=== PATIENT | male | born 1955 | race African-American/Black ===

== ENCOUNTER 2017-03-24 21:32 | Emergency (ER) | payer OTHER ==
[~2017-03-24] VITALS: Ht 175.3 cm; Wt 96.6 kg
[2017-03-24] MEDS ORDERED: NORCO 5-325 TA1 EAC1 ORAL (21:40)
[2017-03-24] MEDS ORDERED: Morphine Sulfate 4mg/ml Inj IVP ONE (21:45)
[2017-03-24 22:45] LABS: BASOPHILS % (AUTO) 0.7 % (0.0-2.0); EOSINOPHILS % (AUTO) 1.8 % (0.0-3.0); LYMPHOCYTES % (AUTO) 23.1 % (20.0-45.0); MEAN CORPUSCULAR HEMOGLOBIN 28.5 PG (27.0-31.0); MEAN CORPUSCULAR VOLUME 86 FL (80-99); MEAN PLATELET VOLUME 9.2 FL (6.5-10.1); MONOCYTES % (AUTO) 9.9 % (1.0-10.0); NEUTROPHILS % (AUTO) 64.6 % (45.0-75.0); PLATELET COUNT 200 K/UL (150-450); RED BLOOD COUNT 3.34 M/UL (4.70-6.10); RED CELL DISTRIBUTION WIDTH 11.8 % (11.6-14.8); WHITE BLOOD COUNT 11.7 K/UL (4.8-10.8)
[2017-03-24] MEDS ORDERED: Etomidate 40mg/20ml Inj IV ONE ×2 (22:46→23:00)
[2017-03-24 23:00] LABS: ALANINE AMINOTRANSFERASE 28 U/L (3-41); ALBUMIN/GLOBULIN RATIO 1.4 (1.0-2.7); ASPARTATE AMINO TRANSFERASE 54 U/L (5-40); CALCIUM 8.9 mg/dL (8.6-10.2); CARBON DIOXIDE 31 mEQ/L (20-30); CHLORIDE 91 mEQ/L (98-107); GLOMERULAR FILTRATION RATE > 60 mL/min (>60); HEMOLYSIS 1; SODIUM 137 mEQ/L (135-145); TOTAL PROTEIN 6.3 g/dL (6.6-8.7)
[2017-03-24 23:01] LABS: INR 1.1 (0.9-1.1)
[2017-03-24 23:05] LABS: ANION GAP 15 (5-15); POTASSIUM 2.8 mEQ/L (3.4-4.9)
[2017-03-25] VITALS: BP 129/62
[2017-03-25] MEDS ORDERED: Morphine Sulfate 4mg/ml Inj IVP ONE ×2 (00:30→03:45)
[2017-03-25 01:20] VITALS: BP 129/79
[2017-03-25 03:34] VITALS: BP 132/72
--- NOTE | 2017-03-25 03:42 | Emergency Room Report ---
History of Present Illness General Chief Complaint: Lower Extremity Injury Source: Patient, EMS Present Illness HPI 61-year-old male presents ED with left hip pain. Per EMS patient bent over today to tie his shoes at home and felt a pop in his left hip. Believes it is dislocated. Patient states he just had hip surgery 3 days ago at [facility]. Total hip replacement on the left. Patient was given pain medications by EMS. States pain is currently an 8/10, throbbing, nonradiating. Unable to bear weight. Denies any other injuries. No other aggravating or relieving factors. Denies any other associated symptoms Allergies: Coded Allergies: DIPHENHYDRAMINE (Verified Allergy, Mild, 03/24/17) Patient History Past Medical History: none Past Surgical History: other - L hip JOSE DANIEL Pertinent Family History: none Social History: Denies: alcohol use, drug use, smoking Immunizations: UTD Reviewed Nursing Documentation: PMH: Agreed, PSxH: Agreed Nursing Documentation-PMH Past Medical History: No History, Except For Hx Hypertension: Yes - no meds Review of Systems All Other Systems: negative except mentioned in HPI Physical Exam Vital Signs Date Time Temp Pulse Resp B/P Pulse Ox O2 Delivery O2 Flow Rate FiO2 03/24/17 21:33 91 20 140/80 97 Room Air 03/25/17 01:20 98.2 2.0 Sp02 EP Interpretation: reviewed, normal General Appearance: alert, GCS 15, non-toxic, mild distress Head: normocephalic Eyes: bilateral eye PERRL, bilateral eye normal inspection ENT: normal ENT inspection Neck: normal inspection Respiratory: normal inspection Cardiovascular #1: normal inspection Gastrointestinal: normal inspection Rectal: deferred Genitourinary: no CVA tenderness Musculoskeletal: tender - L hip. jessica noted to lateral aspect L hip. shortening with internal rotation Neurologic: alert, oriented x3, responsive, motor strength/tone normal, sensory intact, speech normal Psychiatric: normal inspection Skin: normal inspection Lymphatic: normal inspection Procedures Joint Reduction Joint Reduction : Consent: Written Joint Reduction Site: hip (L) Procedural Sedation: Yes Reduction Attempts: Other - twice Pre-Procedure NV Exam: Yes Post-Procedure NV Exam: Yes Post Joint Reduction Film: joint not reduced Patient Tolerated: Well Complications: None Procedural Sedation Consent: Written Pre-Sedation Assessment: Eval. Immed. Prior to Sed, Pre-proc Edu. done, Plan for Sedation Discuss Airway Assessment (Malampati): I Heart: normal Lungs: normal Abdomen: normal Extremities: normal Procedures/Plans: Closed Reduction Plan for Moderate Sedation: Other - etomidate ASA Score: I Start Time: 01:41 End Time: 02:34 Total Time: 52 Communication: No Apparent Limitation Mental Status: Awake Respiration: Unlabored Skin Condition: WNL Abdomen: WNL Nausea: NO Vomiting: NO Medical Decision Making Diagnostic Impression: Primary Impression: Dislocation of hip prosthesis Qualified Codes: T84.029A - Dislocation of unspecified internal joint prosthesis, initial encounter; Z96.649 - Presence of unspecified artificial hip joint Additional Impression: Hypokalemia ER Course Hospital Course 61-year-old male presents ED with left hip pain and shortening. Status post bending over.. Status post left hip prosthesis x3 days Differential diagnoses include: fracture, dislocation, contusion Clinical course Patient placed on stretcher. After initial history and physical I ordered labs , pain medication and x-rays of L hip and L femur X-ray show posterior hip dislocation with prosthesis Labs reviewed-no leukocytosis noted, K 2.8, hemoglobin/hematocrit okay Patient was adequately sedated with etomidate. I made multiple attempts to reduce the hip but was unsuccessful Potassium repleted X-rays reviewed with Dr. Berman (Orthopedics); believes that the acetabulum component is not positioned properly; likely needs revision Discussed case with [facility] where patient had surgery. they agreed to transfer i. I feel this is a highly complex case requiring extensive working including EKG/Rhythm strip, Xray/CT/US, Blood/urine lab work, repeat exams while in ED, and administration of strong opiates/narcotics for pain control, admission to hospital or close patient follow up. Diagnosis - dislocation of hip prosthesis, hypokalemia Transferred in serious condition Labs Test 03/24/17 22:23 White Blood Count 11.7 K/UL (4.8-10.8) Red Blood Count 3.34 M/UL (4.70-6.10) Hemoglobin 9.5 G/DL (14.2-18.0) Hematocrit 28.8 % (42.0-52.0) Mean Corpuscular Volume 86 FL (80-99) Mean Corpuscular Hemoglobin 28.5 PG (27.0-31.0) Mean Corpuscular Hemoglobin Concent 33.0 G/DL (32.0-36.0) Red Cell Distribution Width 11.8 % (11.6-14.8) Platelet Count 200 K/UL (150-450) Mean Platelet Volume 9.2 FL (6.5-10.1) Neutrophils (%) (Auto) 64.6 % (45.0-75.0) Lymphocytes (%) (Auto) 23.1 % (20.0-45.0) Monocytes (%) (Auto) 9.9 % (1.0-10.0) Eosinophils (%) (Auto) 1.8 % (0.0-3.0) Basophils (%) (Auto) 0.7 % (0.0-2.0) Prothrombin Time 11.0 SEC (9.30-11.50) Prothromb Time International Ratio 1.1 (0.9-1.1) Activated Partial Thromboplast Time 31 SEC (23-33) Sodium Level 137 mEQ/L (135-145) Potassium Level 2.8 mEQ/L (3.4-4.9) Chloride Level 91 mEQ/L (98-107) Carbon Dioxide Level 31 mEQ/L (20-30) Anion Gap 15 (5-15) Blood Urea Nitrogen 12 mg/dL (7-23) Creatinine 1.0 mg/dL (0.7-1.2) Estimat Glomerular Filtration Rate > 60 mL/min (>60) Glucose Level 131 mg/dL (74-106) Calcium Level 8.9 mg/dL (8.6-10.2) Total Bilirubin 0.7 mg/dL (0.0-1.2) Aspartate Amino Transf (AST/SGOT) 54 U/L (5-40) Alanine Aminotransferase (ALT/SGPT) 28 U/L (3-41) Alkaline Phosphatase 68 U/L (40-129) Total Protein 6.3 g/dL (6.6-8.7) Albumin 3.7 g/dL (3.5-5.2) Globulin 2.6 g/dL Albumin/Globulin Ratio 1.4 (1.0-2.7) Other X-Ray Diagnostic Results X-Ray ordered: L hip, L femur # of Views/Limited Vs Complete: 2 View, 3 View EP Interpretation: Yes Interpretation: no fractures, no soft tissue swelling, other - posterior hip dislocation Indication: Pain Impression: Other - posterior hip dislocation Interpreting ER Provider: Boogie Poon MD Last Vital Signs Date Time Temp Pulse Resp B/P Pulse Ox O2 Delivery O2 Flow Rate FiO2 03/25/17 01:20 98.2 80 18 100 Nasal Cannula 2.0 72 100 74 100 69 100 71 03/24/17 21:33 140/80 Status: improved Disposition: ER [facility] Condition: Serious Referrals: Tatiana ELIAS,REFERRING (PCP) BOOGIE POON M.D. Mar 25, 2017 03:42
[2017-03-25 03:57] VITALS: BP 132/72
--- NOTE | 2017-03-27 08:52 | Diagnostic Imaging Report ---
Indications: Fall, left hip and thigh pain Technique: 2 views left hip, 2 views left thigh Findings: Comparison: None Femoral component of left hip prosthesis demonstrates complete cephalad and posterior dislocation relative to the acetabular component. No fracture. Overlying soft tissues are swollen with skin jessica. Knee joint intact. IMPRESSION: Dislocation of recently placed left hip prosthesis No other evidence of acute injury
== END 2017-03-25 04:00 | disposition short-term general hospital (02) ==
LOC: EDBD 21:32 → EMR 22:45
DX: T84.021A Dislocation of internal left hip prosthesis, initial encounter (principal); E87.6 Hypokalemia; Z88.8 Allergy status to other drugs, medicaments and biological substances
CPT/HCPCS: 27266; 36415; 73502; 73552; 80053; 85025; 85610; 85730; 96374; 96375; 99285; J2270; J8499

== ENCOUNTER 2018-12-18 13:25 | Inpatient (IN) | payer OTHER ==
[~2018-12-18] VITALS: Ht 175.3 cm; Wt 99.6 kg
[~2018-12-18 13:25] MED LIST: NORCO 5-325 TA1 EAC1 ORAL
--- NOTE | 2018-12-18 14:23 | Emergency Room Report ---
History of Present Illness General Chief Complaint: Chest Pain Source: Patient Present Illness HPI 63-year-old male with pmhx of HTN, smoking p/w chest pain for 2 days. Chest pain started while at rest. Localized to substernal area, radiates to left shoulder, no radiation to back or other areas, sharp in nature, gradual in onset , multiple episodes. +SOB. Denies palpitations, diaphoresis, n/v. This is the first occurrence of chest pain. Denies fever, chills, cough, abd pain. Denies trauma. Patient has never had a stress test. Patient has never had a cardiac catheterization. Allergies: Coded Allergies: DIPHENHYDRAMINE (Verified Allergy, Mild, 03/24/17) Patient History Past Medical History: see triage record Past Surgical History: none Pertinent Family History: none Reviewed Nursing Documentation: PMH: Agreed; PSxH: Agreed Nursing Documentation-PMH Past Medical History: No History, Except For Hx Hypertension: Yes - no meds Review of Systems All Other Systems: negative except mentioned in HPI Physical Exam Vital Signs Date Time Temp Pulse Resp B/P (MAP) Pulse Ox O2 Delivery O2 Flow Rate FiO2 12/18/18 13:36 98.4 68 20 207/101 96 Room Air Sp02 EP Interpretation: reviewed, normal General Appearance: alert, GCS 15, non-toxic, mild distress Head: normocephalic, atraumatic Eyes: bilateral eye normal inspection, bilateral eye PERRL, bilateral eye EOMI ENT: normal ENT inspection, normal pharynx, normal voice, moist mucus membranes Neck: normal inspection, full range of motion, supple Respiratory: normal inspection, lungs clear, normal breath sounds, no respiratory distress, no retraction, no wheezing, speaking full sentences, chest symmetrical Cardiovascular #1: normal inspection, regular rate, rhythm, no edema, normal capillary refill Cardiovascular #2: 2+ radial (R), 2+ radial (L) Gastrointestinal: normal inspection, non tender, soft, non-distended, no guarding Genitourinary: no CVA tenderness Musculoskeletal: normal inspection, back normal, normal range of motion, non- tender Neurologic: normal inspection, alert, oriented x3, responsive, motor strength/ tone normal, sensory intact, normal gait, speech normal Psychiatric: normal inspection, judgement/insight normal, memory normal Skin: normal inspection, normal color, no rash, warm/dry, well hydrated, normal turgor Medical Decision Making Diagnostic Impression: Primary Impression: ACS (acute coronary syndrome) ER Course 63-year-old male p/w CP DDX: ACS vs. CHF vs. pneumonia vs. gastritis/GERD vs. pneumothorax PE on differential however at this time there are other more likely diagnoses. Plan: IV access, obtain labs including troponin, EKG, CXR ASA, pain control with nitro / morphine Anticipate admission ER course: Patient was treated with ASA. Patient has remained on a monitor, HD stable continues to have CP / L shoudler pain not necessarily back pain LUE venoux duplex is neg for DVT Disposition: Patient requires admission for chest pain. Due to patient's history and comorbidities, patient has increased risk of acute cardiac event. Patient requires admission for further workup, serial troponin, and possible stress test/cath inpatient. D/W hospitalist Dr Alfredo Please note that this Emergency Department Report was dictated using [employer] engineer technology software, occasionally this can lead to erroneous entry secondary to interpretation by the dictation equipment. EKG Diagnostic Results EP Interpretation: Yes Rate: normal Rhythm: NSR ST Segments: T-wave inversions leads II, III, and aVF, as well as V4 V5 and V6 ASA given to patient: Yes Rhythm Strip EP Interpretation: Yes Rate: 70 Rhythm: NSR, no PVCs, no ectopy Chest X-ray CXR: Ordered: Yes 1 view Indication: Chest pain EP interpretation: Yes Interpretation: No consolidation, no effusion, no PTX, no acute cardiopulmonary disease Impression: No acute disease Electronically signed by Collin Mackay MD Xray: Left shoulder Complete Indication: Pain EP Interpretation: Yes Interpretation: No dislocation, no soft tissue swelling, no fractures Impression: No acute disease Electronically signed by Collin Mackay MD Laboratory Tests Test 12/18/18 14:19 White Blood Count 9.5 K/UL (4.8-10.8) Red Blood Count 5.36 M/UL (4.70-6.10) Hemoglobin 14.0 G/DL (14.2-18.0) L Hematocrit 44.5 % (42.0-52.0) Mean Corpuscular Volume 83 FL (80-99) Mean Corpuscular Hemoglobin 26.0 PG (27.0-31.0) L Mean Corpuscular Hemoglobin Concent 31.3 G/DL (32.0-36.0) L Red Cell Distribution Width 12.7 % (11.6-14.8) Platelet Count 161 K/UL (150-450) Mean Platelet Volume 10.5 FL (6.5-10.1) H Neutrophils (%) (Auto) 64.1 % (45.0-75.0) Lymphocytes (%) (Auto) 25.4 % (20.0-45.0) Monocytes (%) (Auto) 6.7 % (1.0-10.0) Eosinophils (%) (Auto) 2.2 % (0.0-3.0) Basophils (%) (Auto) 1.6 % (0.0-2.0) Sodium Level 141 MMOL/L (136-145) Potassium Level 3.5 MMOL/L (3.5-5.1) Chloride Level 105 MMOL/L (98-107) Carbon Dioxide Level 29 MMOL/L (21-32) Anion Gap 7 mmol/L (5-15) Blood Urea Nitrogen 8 mg/dL (7-18) Creatinine 1.0 MG/DL (0.55-1.30) Estimate Glomerular Filtration Rate > 60 mL/min (>60) Glucose Level 102 MG/DL (74-106) Calcium Level 9.1 MG/DL (8.5-10.1) Total Bilirubin 0.8 MG/DL (0.2-1.0) Aspartate Amino Transferase (AST) 23 U/L (15-37) Alanine Aminotransferase (ALT) 27 U/L (12-78) Alkaline Phosphatase 105 U/L (46-116) Total Creatine Kinase 194 U/L (26-308) Creatine Kinase MB 2.0 NG/ML (0.0-3.6) Creatine Kinase MB Relative Index 1.0 Troponin I 0.041 ng/mL (0.000-0.056) Pro-B-Type Natriuretic Peptide 239 pg/mL (0-125) H Total Protein 7.2 G/DL (6.4-8.2) Albumin 3.7 G/DL (3.4-5.0) Globulin 3.5 g/dL Albumin/Globulin Ratio 1.1 (1.0-2.7) Last Vital Signs Date Time Temp Pulse Resp B/P (MAP) Pulse Ox O2 Delivery O2 Flow Rate FiO2 12/18/18 13:36 98.4 68 20 207/101 96 Room Air Disposition: ADMITTED INPATIENT Condition: Serious Collin Mackay M.D. Dec 18, 2018 14:23
--- NOTE | 2018-12-18 14:29 | NUR ---
ED Nurse Note: PT WALKED IN TO ER TODAY FROM HOME. AOX4. PT C/O LEFT SIDED CHEST PAIN, 10/10 X AROUND 0100 THIS MORNING. PT ALSO C/O TINGLING SENSATION DOWN LEFT ARM. CIRCULATION AND SENSATION INTACT. STEADY GAIT. BP AT [facility] 197/88, DR SILVA AWARE. PT DENIES HEADACHE OR DIZZINESS.
[2018-12-18 14:30] VITALS: BP 197/88
[2018-12-18] MEDS ORDERED: Nitroglycerin Subl 0.4mg tab SL PRN (14:30)
[2018-12-18 14:57] LABS: BASOPHILS % (AUTO) 1.6 % (0.0-2.0); EOSINOPHILS % (AUTO) 2.2 % (0.0-3.0); HEMATOCRIT 44.5 % (42.0-52.0); LYMPHOCYTES % (AUTO) 25.4 % (20.0-45.0); MEAN CORPUSCULAR VOLUME 83 FL (80-99); MONOCYTES % (AUTO) 6.7 % (1.0-10.0); NEUTROPHILS % (AUTO) 64.1 % (45.0-75.0); PLATELET COUNT 161 K/UL (150-450); RED BLOOD COUNT 5.36 M/UL (4.70-6.10); RED CELL DISTRIBUTION WIDTH 12.7 % (11.6-14.8); WHITE BLOOD COUNT 9.5 K/UL (4.8-10.8)
[2018-12-18 15:08] LABS: ANION GAP 7 mmol/L (5-15); BLOOD UREA NITROGEN 8 mg/dL (7-18); CALCIUM 9.1 MG/DL (8.5-10.1); CARBON DIOXIDE 29 MMOL/L (21-32); CHLORIDE 105 MMOL/L (98-107); POTASSIUM 3.5 MMOL/L (3.5-5.1); SODIUM 141 MMOL/L (136-145)
--- NOTE | 2018-12-18 15:11 | NUR ---
ED Nurse Note: REPORT GIVEN TO ROB WHITTINGTON.
--- NOTE | 2018-12-18 15:13 | Diagnostic Imaging Report ---
Indication: Dyspnea Comparison: None A single view chest radiograph was obtained. Findings: Cardiomediastinal appearance is within normal limits for age. The lungs are clear. Pulmonary vascularity is appropriate. The diaphragmatic contour is smooth and costophrenic angles are sharp. No pleural effusions are identified. The bones are unremarkable. Impression: No acute findings
[2018-12-18 15:23] LABS: ALANINE AMINOTRANSFERASE 27 U/L (12-78); ALBUMIN 3.7 G/DL (3.4-5.0); ALBUMIN/GLOBULIN RATIO 1.1 (1.0-2.7); ALKALINE PHOSPHATASE 105 U/L (46-116); ASPARTATE AMINO TRANSFERASE 23 U/L (15-37); BILIRUBIN,TOTAL 0.8 MG/DL (0.2-1.0); CREATINE KINASE 194 U/L (26-308)
[2018-12-18 15:30] VITALS: BP 177/81
--- NOTE | 2018-12-18 15:40 | NUR ---
ED Nurse Note: pt c/o shoulder and headache, ERMD notified.
[2018-12-18] MEDS ORDERED: Morphine Sulfate 4mg/ml Inj (IV USE ONLY) IVP ONE ×2 (16:00→17:30)
[2018-12-18 16:30] VITALS: BP 169/77
[2018-12-18] MEDS ORDERED: AMLODIPINE BESY10 MG ORAL (16:34)
[2018-12-18] MEDS ORDERED: ASPIRIN81 MG ORAL (16:34)
--- NOTE | 2018-12-18 16:56 | NUR ---
ED Nurse Note: verified w/ ERMD for pt eating, pt okay to eat, ordered tray.
--- NOTE | 2018-12-18 18:25 | NUR ---
ED Nurse Note: pt states he still has pain and tenderness in his arm, pt states he thinks he has swelling on the arm, ERMD notified.
[2018-12-18 18:30] VITALS: BP 164/88
[2018-12-18] MEDS ORDERED: Isovue-370 150ml vial INJ PRN (18:30)
--- NOTE | 2018-12-18 19:27 | NUR ---
ED Nurse Note: Pt moaning with c/o pain to LUE and left anterior chest, which increases with movement.
[2018-12-18] MEDS ORDERED: Methocarbamol 750mg tab ORAL ONE (19:30)
--- NOTE | 2018-12-18 20:14 | NUR ---
ED Nurse Note: pt came back from CT.
[2018-12-18] MEDS ORDERED: Vancomycin 1.5 GM in D5W 275 ML IVPB ONE (21:30)
[2018-12-18] MEDS ORDERED: Vancomycin 1.5gm Premix 275 ML IVPB ONE (21:30)
[2018-12-18] MEDS ORDERED: cefTRIAXone 1 GM in D5W 55 ML IVPB ONE (21:30)
--- NOTE | 2018-12-18 22:04 | NUR ---
ED Nurse Note: pt transferred to tele floor and all belongings sent w/ pt, report was given to RN ronald and endorsed care. pt vss, resp even and unlabored on RA, NSR on satellite project site monitor.
--- NOTE | 2018-12-18 22:10 | NUR ---
NURSE NOTES: Received report from Anabel Villa RN from ED regarding patients transfer to TELE floor. Belongings checklist reviewed and verified with patient at bedside. Head to toe assessment done. Patient complaining of constant Left shoulder pain, will notify primary MD. Patient is AAO X4 and is able to express needs and wants appropriately with no difficulties. IV line intact and patent, placed on continuos cardiac monitoring per protocol. patient in continent and is offered to use the urinal d/t unstable gate. Safety precaution in place; siderails x2 up, call light within reach, bed in lowest position, brakes and alarm on at all times. Needs and wants anticipated and attended. Will continue to monitor
--- NOTE | 2018-12-18 22:30 | NUR ---
NURSE NOTES: Called and left message for Sonia Alfredo MD. regarding patients admit orders.
[2018-12-18] MEDS ORDERED: HYDROCHLOROTHIA25 MG ORAL (22:41)
--- NOTE | 2018-12-18 22:45 | NUR ---
NURSE NOTES: Received call back from Primary MD. New orders received and carried out. Will continue to monitor. Called MD Sonny. (Pain mgt Consult) regarding patients complain of constant left shoulder pain. Left message, awaiting call back
[2018-12-18] MEDS ORDERED: Acetaminophen 500mg (ES) tab ORAL PRN (23:00)
--- NOTE | 2018-12-18 23:20 | NUR ---
NURSE NOTES: Called and left message for MD Sonny. second time calling regarding patients complain of constant left shoulder pain. Awaiting call back. Will continue to monitor.
--- NOTE | 2018-12-18 23:50 | NUR ---
NURSE NOTES: New orders received and carried out per MD Sonny. Will continue plan of care
[2018-12-19] VITALS (7 sets, daily range): BP systolic 134–176; BP diastolic 75–87
[2018-12-19] MEDS: HYDROcodone/Acetamin 5/325 tab ORAL PRN ×3 (00:05→23:38)
--- NOTE | 2018-12-19 02:36 | NUR ---
NURSE NOTES: Patient in bed asleep with no S/S of distress at this time. Will continue to monitor
--- NOTE | 2018-12-19 07:23 | NUR ---
CASE MANAGEMENT:REVIEW 63 YR OLD MALE FROM HOME CC: CHEST PAIN W/TINGLING OF LEFT ARM PMH: HYPERTENSION SI: ACS 98.4 68 20 207/101 96% ON RA TROPONIN(+) IS: ASA PO IV MORPHINE X2 ROBAXIN PO X1 IV VANCOMYCIN X1 IV ROCEPHIN X1 CXR : TO TELEMETRY INTERQUAL
--- NOTE | 2018-12-19 07:37 | NUR ---
HAND-OFF: Report given to Jeff Amanda RN. Patient in bed in stable condition with no S/S of distress at this time. Endorsed plan of care
--- NOTE | 2018-12-19 07:51 | NUR ---
NURSE NOTES: Received report from ROB Gan. Patine in bed resting, no active s/s cardiac, respiratory distress noticed at this time, denies pain at this time, patient on room air, SR with HR 73, AOx4. IV on right AC asymptomatic, patent, intact. Endorsed patient moved out of bed without calling for help, re-informed patient to call for help. Bed in lowest position, side rails upx3, call light within reach. Will continue to monitor.
--- NOTE | 2018-12-19 08:00 | Diagnostic Imaging Report ---
Indication: Left-sided chest pain 10 out of 10, tingling sensation down left arm, elevated blood pressure Technique: IV administration nonionic contrast. Spiral acquisitions obtained from the lung bases to the lung apices. Multiplanar and 3-D reconstructions were generated. Total dose length product 1257 mGycm. CTDIvol(s) 12, 12, 50, 32 mGy. Dose reduction achieved using automated exposure control Comparison: none Findings: Pulmonary artery opacification is adequate. No intraluminal filling defects or other findings to suggest acute pulmonary embolus demonstrated. Normal caliber pulmonary arteries. No evidence of right ventricular dilatation. No evidence of thoracic aortic aneurysm or dissection. Normal caliber and normal branching anatomy of the great neck vessels. Normal caliber of the proximal abdominal visceral vessels. The lungs demonstrate some posterior dependent atelectatic changes, and some basilar linear atelectatic changes, are otherwise clear. No infiltrates, effusions, masses, nodules, or congestion demonstrated. The heart size is upper limits of normal. No pericardial effusion. No mediastinal or hilar mass or adenopathy. The included portion of the thyroid is prominent without focal lesions. No axillary or chest wall adenopathy. There is a small sliding-type hiatal hernia. The remainder the esophagus is unremarkable. Fluid is seen within the left shoulder subdeltoid/subacromial bursa The included abdominal viscera are except for a left renal cyst, incompletely included. Impression: No evidence of acute pulmonary embolus or other acute thoracic pathology Fluid within the left subdeltoid/subacromial bursa, could indicate pathology of the left shoulder. Correlate with clinical findings, consider MRI as clinically indicated for further evaluation Incidental findings as noted, including minimal basilar atelectatic changes, small sliding-type hiatal hernia, left renal cyst This agrees with the preliminary interpretation provided overnight by Dr. Yi The CT scanner at [facility] is accredited by the [employer] and the scans are performed using protocols designed to limit radiation exposure to as low as reasonably achievable to attain images of sufficient resolution adequate for diagnostic evaluation.
--- NOTE | 2018-12-19 08:39 | Consultation ---
History of Present Illness General Date patient seen: Dec 19, 2018 Chief Complaint: Present Illness Allergies: Coded Allergies: DIPHENHYDRAMINE (Verified Allergy, Mild, 03/24/17) Medication History Scheduled Amlodipine Besylate* (Amlodipine Besylate*), 10 MG ORAL DAILY, (Reported) Aspirin* (Aspirin*), 81 MG ORAL DAILY, (Reported) Hydrochlorothiazide* (Hydrochlorothiazide*), 25 MG ORAL DAILY, (Reported) Scheduled PRN Hydrocodone Bit/Acetaminophen 5-325* ([place] 5-325 Tablet*), 1 TAB ORAL Q4H PRN for For Pain, (Reported) Patient History Healthcare decision maker N Resuscitation status Full Code Advanced Directive on File No Physical Exam Last 24 Hour Vital Signs Date Time Temp Pulse Resp B/P (MAP) Pulse Ox O2 Delivery O2 Flow Rate FiO2 12/19/18 04:00 71 12/19/18 04:00 99.8 73 20 156/87 (110) 18 12/19/18 00:00 82 12/19/18 00:00 98.4 74 20 156/84 (108) 97 12/18/18 22:13 Room Air 12/18/18 22:10 99.7 12/18/18 22:10 73 12/18/18 22:04 101.0 92 18 168/88 98 Room Air 12/18/18 18:30 98.7 61 18 164/88 98 Room Air 12/18/18 16:30 98.2 60 18 169/77 98 Room Air 12/18/18 15:30 98.7 60 18 177/81 98 Room Air 12/18/18 14:30 62 20 Room Air 12/18/18 14:30 98.2 62 20 197/88 98 Room Air 12/18/18 14:27 197/88 12/18/18 13:36 98.4 68 20 207/101 96 Room Air Intake and Output 12/18/18 12/19/18 18:59 06:59 Intake Total 200 ml Output Total 900 ml Balance -700 ml Intake Oral 200 ml Output Urine Total 900 ml # Voids 2 2 Laboratory Tests Test 12/18/18 14:19 12/18/18 21:30 12/19/18 06:45 White Blood Count 9.5 K/UL (4.8-10.8) Red Blood Count 5.36 M/UL (4.70-6.10) Hemoglobin 14.0 G/DL (14.2-18.0) L Hematocrit 44.5 % (42.0-52.0) Mean Corpuscular Volume 83 FL (80-99) Mean Corpuscular Hemoglobin 26.0 PG (27.0-31.0) L Mean Corpuscular Hemoglobin Concent 31.3 G/DL (32.0-36.0) L Red Cell Distribution Width 12.7 % (11.6-14.8) Platelet Count 161 K/UL (150-450) Mean Platelet Volume 10.5 FL (6.5-10.1) H Neutrophils (%) (Auto) 64.1 % (45.0-75.0) Lymphocytes (%) (Auto) 25.4 % (20.0-45.0) Monocytes (%) (Auto) 6.7 % (1.0-10.0) Eosinophils (%) (Auto) 2.2 % (0.0-3.0) Basophils (%) (Auto) 1.6 % (0.0-2.0) Sodium Level 141 MMOL/L (136-145) Potassium Level 3.5 MMOL/L (3.5-5.1) Chloride Level 105 MMOL/L (98-107) Carbon Dioxide Level 29 MMOL/L (21-32) Anion Gap 7 mmol/L (5-15) Blood Urea Nitrogen 8 mg/dL (7-18) Creatinine 1.0 MG/DL (0.55-1.30) Estimat Glomerular Filtration Rate > 60 mL/min (>60) Glucose Level 102 MG/DL (74-106) Calcium Level 9.1 MG/DL (8.5-10.1) Total Bilirubin 0.8 MG/DL (0.2-1.0) Aspartate Amino Transf (AST/SGOT) 23 U/L (15-37) Alanine Aminotransferase (ALT/SGPT) 27 U/L (12-78) Alkaline Phosphatase 105 U/L (46-116) Total Creatine Kinase 194 U/L (26-308) Creatine Kinase MB 2.0 NG/ML (0.0-3.6) Creatine Kinase MB Relative Index 1.0 Troponin I 0.041 ng/mL (0.000-0.056) 0.013 ng/mL (0.000-0.056) Pro-B-Type Natriuretic Peptide 239 pg/mL (0-125) H Total Protein 7.2 G/DL (6.4-8.2) Albumin 3.7 G/DL (3.4-5.0) Globulin 3.5 g/dL Albumin/Globulin Ratio 1.1 (1.0-2.7) Lactic Acid Level 1.10 mmol/L (0.4-2.0) C-Reactive Protein, Quantitative 2.7 mg/dL (0.00-0.90) H Height (Feet): 5 Height (Inches): 9.00 Weight (Pounds): 219 Medications Current Medications Medications (Trade) Dose Ordered Sig/Brigid Route PRN Reason Start Time Stop Time Status Last Admin Dose Admin Acetaminophen (Tylenol) 500 mg Q4H PRN ORAL Mild Pain/Temp > 100.5 12/18/18 23:00 01/17/19 22:59 Acetaminophen/ Hydrocodone Bitart ([place] 5/325) 1 tab Q4H PRN ORAL Moderate Pain (Pain Scale 4-6) 12/19/18 00:00 12/26/18 00:00 12/19/18 00:05 Amlodipine Besylate (Norvasc) 10 mg DAILY ORAL 12/19/18 09:00 01/18/19 08:59 Aspirin (ASA) 81 mg DAILY ORAL 12/19/18 09:00 01/18/19 08:59 Clonidine HCl (Catapres Tab) 0.1 mg Q6H PRN ORAL For High Blood Pressure 12/18/18 23:30 01/17/19 23:29 Hydrochlorothiazide (Hydrodiuril) 25 mg DAILY ORAL 12/19/18 09:00 01/18/19 08:59 Ibuprofen (Motrin) 600 mg Q6H PRN ORAL For Pain 12/18/18 23:00 01/17/19 22:59 Iopamidol (Isovue-370 150ml) 150 ml NOW PRN INJ Radiology Procedure 12/18/18 18:30 12/20/18 18:30 Nitroglycerin (Ntg) 0.4 mg Q5M PRN SL Prn Chest Pain 12/18/18 14:30 01/17/19 14:29 12/18/18 14:27 Assessment/Plan Assessment/Plan (1) Left shoulder pain (2) R/o Left shoulder OA seen dictated Dion Hopper Dec 19, 2018 08:39
[2018-12-19] MEDS: Aspirin Baby 81mg ORAL SCH (08:40)
--- NOTE | 2018-12-19 08:46 | Diagnostic Imaging Report ---
Indication: Left arm pain Technique: Grayscale and duplex images of the left upper extremity veins Comparison: none Findings: Grayscale and duplex images of the left upper extremity veins demonstrate no evidence of intraluminal thrombus. Normal compressibility. Normal phasic Doppler waveforms, demonstrating no evidence of valvular insufficiency. Note that the left cephalic vein could not be demonstrated. Impression: Negative for left upper extremity venous thrombosis Note nonvisualization of the left cephalic vein
--- NOTE | 2018-12-19 09:24 | Consultation ---
Consult Note Assessment/Plan DICT # [id number] Nick Gonzalez MD Dec 19, 2018 09:24
--- NOTE | 2018-12-19 10:00 | Diagnostic Imaging Report ---
Indication: Left shoulder pain Technique: 3 views of the left shoulder Comparison: none Findings: No acute fractures. No dislocations. Joint spaces are preserved Impression: Negative
--- NOTE | 2018-12-19 16:21 | NUR ---
*-* INSURANCE *-* ALL AVAILABLE CLINICAL HAVE BEEN FAXED TO: [facility] F:[phone] P:[phone]
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
--- NOTE | 2018-12-19 19:11 | Cardiology Progress Note ---
Assessment/Plan Assessment/Plan The patient is seen and examined, full consult note will be dictated. Objective Last 24 Hour Vital Signs Date Time Temp Pulse Resp B/P (MAP) Pulse Ox O2 Delivery O2 Flow Rate FiO2 12/19/18 16:00 99.8 68 18 148/85 (106) 94 12/19/18 16:00 68 12/19/18 12:30 164/81 (108) 12/19/18 12:03 176/86 12/19/18 12:00 99.8 71 18 176/86 (116) 97 12/19/18 12:00 72 12/19/18 09:00 Room Air 12/19/18 08:41 78 150/85 12/19/18 08:00 99.7 78 18 150/85 (106) 99 12/19/18 08:00 72 12/19/18 04:00 71 12/19/18 04:00 99.8 73 20 156/87 (110) 18 12/19/18 00:00 82 12/19/18 00:00 98.4 74 20 156/84 (108) 97 12/18/18 22:13 Room Air 12/18/18 22:10 99.7 12/18/18 22:10 73 12/18/18 22:04 101.0 92 18 168/88 98 Room Air Intake and Output 12/18/18 12/19/18 19:00 07:00 Intake Total 200 ml Output Total 900 ml Balance -700 ml Intake Oral 200 ml Output Urine Total 900 ml # Voids 2 2 Laboratory Tests Test 12/18/18 21:30 12/19/18 06:45 Lactic Acid Level 1.10 mmol/L (0.4-2.0) C-Reactive Protein, Quantitative 2.7 mg/dL (0.00-0.90) H Troponin I 0.013 ng/mL (0.000-0.056) Ac Avila MD Dec 19, 2018 19:11
[2018-12-19] MEDS: Irbesartan 150mg tablet ORAL SCH (19:38)
--- NOTE | 2018-12-19 19:56 | NUR ---
HAND-OFF: Report given to ROB Soto.
--- NOTE | 2018-12-19 19:57 | NUR ---
NURSE NOTES: Got report from Pati RIVAS. Pt in stable condition, Denies any pain. No s/s of distress noted. Pt resting in bed comfortably. Bed in low and locked position, call light within reach, bedside table within reach. continue to monitor.
--- NOTE | 2018-12-19 22:30 | Consultation ---
DATE OF CONSULTATION: 12/19/2018 CARDIOLOGY CONSULTATION CONSULTING PHYSICIAN: Ac Avila M.D. REFERRING PHYSICIAN: Lester Alfredo M.D. REASON FOR CONSULTATION: Management of chest pain. HISTORY OF PRESENT ILLNESS: The patient is a very unfortunate 63-year-old gentleman, who presents to the hospital with complaints of left shoulder pain that is located mostly in the left shoulder with radiation to the left arm associated paresthesia and numbness of the left upper extremity. The patient states that he has trouble with hypertension and blood pressure as a result of the pain, went up to over 200 mmHg. The patient had some shortness of breath according to the emergency department note, but there was no actual chest pain. Coronary artery disease risk factors including hypertension and tobacco use, which he claims that he uses every now and then. ALLERGIES: Diphenhydramine. PAST SURGICAL HISTORY: None. PAST MEDICAL HISTORY: Hypertension. SOCIAL HISTORY: Using tobacco now and then. Denies any alcohol or illicit drug use. MEDICATIONS: List of medications includes amlodipine 10 mg p.o. daily, aspirin 81 mg p.o. daily, hydrochlorothiazide 25 mg p.o. daily, and hydrocodone and acetaminophen 5/325 mg one tablet q.4 h. p.r.n. pain. REVIEW OF SYSTEMS: A 12-system review done essentially negative except what was mentioned in the history of present illness. PHYSICAL EXAMINATION: VITAL SIGNS: Blood pressure was 207/101, pulse is 68, respirations 20, temperature 98.4 degrees Fahrenheit, and O2 saturation 96% on room air. GENERAL: The patient is a very unfortunate 63-year-old gentleman, in no apparent respiratory distress. HEENT: Atraumatic and normocephalic. Anicteric. Pupils are equal, round, and reactive to light and accommodation. Extraocular muscles intact. NECK: JVP less than 5 cm. No carotid bruit. Carotid upstrokes 2+ bilaterally. CARDIOVASCULAR: Normal S1, S2. Regular rate and rhythm. No murmurs, gallops, or rubs. PMI is at fourth intercostal space in the midclavicular line. LUNGS: Clear to auscultation bilaterally. ABDOMEN: Soft, nontender, and nondistended. No hepatosplenomegaly. Positive bowel sounds. EXTREMITIES: No evidence of edema, clubbing, or cyanosis. LABORATORY FINDINGS: Sodium is 141, potassium is 3.5, chloride 105, bicarbonate 29, BUN of 8, and creatinine 1.0. Glucose is 102 and calcium is 9.1. Troponin I x2 negative. ProBNP was 239. WBC 9.5, hemoglobin 14.0, hematocrit of 44.5, and platelet count is 161,000. Chest x-ray showed no acute cardiopulmonary disease. A CT angiography of the chest showed no evidence of aortic dissection or pulmonary embolism. A 12-lead electrocardiogram showed sinus rhythm, heart rate of 65 with normal axis. There is nonspecific T-wave abnormality. ASSESSMENT AND PLAN: The patient is a very unfortunate 63-year-old gentleman, seen in Cardiology consultation. 1. Noncardiac chest pain, chest pain is mostly coming from left shoulder with associated left upper extremity numbness as well as pain, exquisite tenderness especially with moving the left shoulder. 2. Acute myocardial infarction is ruled out. A 12-lead electrocardiogram does not show any evidence of acute ischemia. No further cardiac ischemic workup is necessary at this time given the characteristic of chest pain/shoulder pain. 3. Accelerated hypertension. I would like to continue amlodipine in replacement for hydrochlorothiazide. Start the patient on combination of angiotensin receptor meme and chlorthalidone. The patient may required to be on beta blockers as well. 4. Further I would like to obtain 2D echocardiography for assessment of LV systolic and diastolic function. 5. Further therapeutic and diagnostic decision will be based on results of echocardiography. I would like to thank, Dr. Alfredo, for the courtesy of this consultation. Ac Avila M.D. DR: SELENE JOB#: [id number] CC:
[2018-12-20] VITALS: BP 134/76
[2018-12-20 04:20] VITALS: BP 139/83
[2018-12-20] MEDS: HYDROcodone/Acetamin 5/325 tab ORAL PRN ×2 (05:33→11:49)
[2018-12-20 08:09] VITALS: BP 130/71
[2018-12-20] MEDS: Aspirin Baby 81mg ORAL SCH (08:11)
[2018-12-20] MEDS: Irbesartan 150mg tablet ORAL SCH (08:11)
--- NOTE | 2018-12-20 11:30 | History and Physical Report ---
DATE OF ADMISSION: 12/18/2018 HISTORY OF PRESENT ILLNESS: The patient has been admitted for chest pain x1 day. The patient also complains of left shoulder pain x1 day. The patient has history of rotator cuff surgery in the right shoulder in the left shoulder area and the patient has decreased range of motion in the left shoulder due to pain. The patient denies nausea, vomiting, or diarrhea. No palpitations, shortness of breath, or cough. He has chest pain x1 day. He is admitted to rule out acute coronary syndrome. PAST MEDICAL HISTORY: Hypertension and rotator cuff tear. PAST SURGICAL HISTORY: Rotator cuff surgery in the right shoulder, left hip surgery, knee replacement, . MEDICATIONS: Amlodipine, aspirin, hydrochlorothiazide . ALLERGIES: To diphenhydramine. SOCIAL HISTORY: History of smoking. Denies history of drug or alcohol abuse. REVIEW OF SYSTEMS: HEENT: Denies headaches. RESPIRATORY: Denies shortness of breath. Denies cough. CARDIOVASCULAR: Does have chest pain x1 day and also complains of left shoulder pain. GASTROINTESTINAL: Denies nausea, vomiting, or diarrhea. Denies abdominal pain. . EXTREMITIES: Does have pain in the upper extremities. . CIGAR HEAD HOLER: Denies change in vision or speech pattern. PHYSICAL EXAMINATION: VITAL SIGNS: Temperature 99.8, pulse is 71, and blood pressure . HEENT: PERRLA. NECK: Supple. No lymphadenopathy. CHEST: Clear to auscultation CARDIOVASCULAR: Regular rate and rhythm. No murmurs or extra sounds. GASTROINTESTINAL: Soft, nontender, and nondistended. No organomegaly. EXTREMITIES: Decreased range of motion in the left shoulder due to pain. Moves all four extremities. NEUROLOGIC: Reflexes equal on both sides. LABORATORY AND DIAGNOSTIC DATA: WBC of 9.4, hemoglobin of 14, and platelets of 161. Sodium 141, potassium 3.5, BUN of 8, creatinine 1, and glucose of 105. ASSESSMENT AND PLAN: Chest pain, hypertension, as well as left shoulder pain and according to Dr. Berman, to see the patient . The patient also been consulted by Dr. Avila, Dr. Lopez, Dr. Gonzalez, and Dr. Dennis for the management of pain control as well as chest pain. rule out chronic obstructive pulmonary disease, the patient is a chronic smoker. Lester Alfredo M.D. DR: HANNAH JOB#: [id number] CC:
--- NOTE | 2018-12-20 11:30 | Consultation ---
DATE OF CONSULTATION: 12/19/2018 NOTE: "POOR AUDIO QUALITY" PAIN MANAGEMENT CONSULTATION CONSULTING PHYSICIAN: Leonidas Dennis M.D. REFERRING PHYSICIAN: Lester Alfredo M.D. PHYSICIAN PRINT [employer]EL[employer]: Dolores Redding CHIEF COMPLAINT: Left shoulder pain. HISTORY OF PRESENT ILLNESS: This is a 63-year-old male who is being seen on the telemetry floor of [facility] for initial pain management consultation. The patient was admitted under the care of Dr. Alfredo from the emergency room complaining chest pain to rule out ACS with c/o left shoulder pain as well and was started on [place] 5/325 one tablet every four hours as needed for pain. The patient is in bed and showing no signs of pain at this time. PAST MEDICAL HISTORY: Hypertension. PAST SURGICAL HISTORY: right shoulder. SOCIAL HISTORY: He is a smoker and drinking alcohol. Denies any IV drug abuse. ALLERGIES: No known drug allergies. MEDICATIONS: Amlodipine, aspirin, hydrochlorothiazide, and [place]. REVIEW OF SYSTEMS: Denies rash, fever, chills, sweating, dizziness. No nausea, vomiting, diarrhea, blood in stool or urine. No bowel or bladder incontinence c/o left shoulder pain. PHYSICAL EXAMINATION: VITAL SIGNS: Blood pressure 145/82 heart rate is 72, and oxygen saturation is 90%. HEENT: PERRLA. NECK: Range of motion is full in all directions. LUNGS: Decreased breath sounds bilaterally. HEART: S1 and S2 regular. ABDOMEN: Soft and nontender. BACK: Range of motion is full in flexion and extension. EXTREMITIES: Upper extremity and lower extremity range of motion is full in all directions. No cyanosis. No clubbing. No edema. Sensory is intact. Reflexes are not obtainable. No adenopathy. ASSESSMENT AND PLAN: This is a 61-year-old male with Left shouler pain and osteoarthritis. We will rule out with an Xray of left shoulder, start patient on lidocaine patch applied on the shoulder and continue the norco. The patient was discussed with Dr. Dennis and concurred. Thank you very much for the courtesy of this consultation. Leonidas Dennis M.D. LIZETTE Redding DR: GRIFFIN JOB#: [id number] CC: ISATU
--- NOTE | 2018-12-20 11:32 | NUR ---
CASE MANAGEMENT:REVIEW 12/20/18 SI: NONCARDIAC CHEST PAIN ACCELERATED HTN 98.4 80 20 130/71 99% ON RA IS: AVAPRO PO QD NORVASC PO QD ASA PO QD : TELEMETRY STATUS DCP: FROM HOME
[2018-12-20 12:11] VITALS: BP 157/71
--- NOTE | 2018-12-20 12:25 | NUR ---
NURSE NOTES: pt awake alert, no distress. no c/o pain. bed in lowest position, locked. received discharge order from Dr Alfredo, to continue home meds, dc hosp meds pt made aware , Addendum: 12/20/18 at 1244 by SABRA ROJAS RN if cleared by cardio , left msg to Dr Avila if cleared for dc and left msg for Ward if can write rx for pain med pt is requesting
--- NOTE | 2018-12-20 12:46 | NUR ---
NURSE NOTES: paged dr Avila via office spoke lexii Apodaca for dc clearance
--- NOTE | 2018-12-20 13:50 | NUR ---
NURSE NOTES: dr Avila cleared pt for dc , no additional med per md "dr Alfredo is responsible for that" pt left in stable condition, w all belongings , arm band and iv removed, no bleeding.
--- NOTE | 2018-12-20 15:37 | NUR ---
*-* INSURANCE *-* ALL AVAILABLE CLINICAL HAVE BEEN FAXED TO: [facility] F:[phone] P:[phone]
--- NOTE | 2018-12-21 09:11 | Discharge Summary ---
Discharge Summary Discharge Summary _ DATE OF ADMISSION: 12/18/2018 DATE OF DISCHARGE: 12/20/2018 DISCHARGED BY: Dr. Lester Whelan CONSULTANTS: Dr. Nohelia Gonzalez [facility] COURSE: Patient is a 63-year-old male, with past medical history of hypertension, smoker , presented to ED complaining of chest pain for 2 days. Chest pain started at rest. It was localized to the substernal area, radiated to the left shoulder. Pain was described to be sharp in nature, with gradual onset and occurred multiple episodes. This was accompanied by shortness of breath. He denied palpitations, diaphoresis, nausea or vomiting. This was his first occurrence of chest pain. He denied fever, chills, cough, abdominal pain or trauma. On evaluation at the ED, blood pressure was elevated to 207/101, pulse rate 68. Blood work did not show any leukocytosis, hemoglobin was 14, hematocrit 44. Electrolytes were normal. Initial troponin was negative. He had an EKG done that showed normal sinus rhythm with T wave inversion in leads II, III, aVF, as well as V4, V5 and V6, as read by ER physician. He was given aspirin. Chest x- ray did not show any acute findings. Venous duplex was negative for acute DVT bilaterally. CTA of the chest did not show any PE. There was fluid within the left subdeltoid/subacromial bursa. Due to his risk factors including hypertension and tobaddo use, he was admitted for evaluation of ACS. Patient had left shoulder and chest pain, x-ray of the left shoulder did not show any dislocation, no acute fractures, joint spaces were well preserved. Orthopedic consultation was obtained at the ED by ER physician. Per Dr. Berman , no surgical intervention was required. Cardiac evaluation was done. Cardiac enzymes were monitored. Troponin was negative x2. Patient had noncardiac chest pain. Chest pain was mostly coming from the left shoulder with associated left upper extremity numbness as well as pain and exquisite tenderness with moving the left shoulder. Acute myocardial infarction was ruled out. Twelve-lead electrocardiogram did not show any evidence of acute ischemia. Per cardiology recommendation, no further cardiac ischemic workup was needed. He was given aspirin. He had elevated accelerated hypertension. He was started on amlodipine. He was also given combination of ARB and chlorthalidone. He was placed on [place] for management of shoulder pain. He was given lidocaine patch. Blood pressure was better controlled. He was stable in telemetry. He was eventually discharged home. FINAL DIAGNOSES: Noncardiac chest pain, chest pain, likely secondary to left shoulder pathology and bursitis Accelerated hypertension Smoker/Tobacco use DISPOSITION: DC home. DISCHARGE MEDICATIONS: Refer to Discharge Medication List. DISCHARGE INSTRUCTIONS: Follow-up in a week. I have been assigned to complete a discharge summary on this account, I was not involved with the patient's management. Rach Mcdonald NP Dec 21, 2018 09:11
--- NOTE | 2018-12-21 14:30 | Cardiology Report ---
APPROVED REPORT EKG Measurement Heart [id number] Normal sinus rhythm Possible Left atrial enlargement Nonspecific T wave abnormality Abnormal ECG
== END 2018-12-20 13:50 | disposition home or self-care (01) | DRG 558 ==
LOC: EMR 14:19 → EDBEDREQ 17:06 → 2E 18:10 → EDBEDREQ 20:38 → 2E 21:51
DX: M71.9 Bursopathy, unspecified (principal); J98.11 Atelectasis; M19.012 Primary osteoarthritis, left shoulder; I10 Essential (primary) hypertension; F17.200 Nicotine dependence, unspecified, uncomplicated; K44.9 Diaphragmatic hernia without obstruction or gangrene
CPT/HCPCS: 36415; 71045; 71275; 80053; 82550; 82553; 83605; 83880; 84484; 85025; 86140; 87040; 93005; 93971; 96365; 96366; 96368; 96375; 96376; 99285